=== PATIENT | male | born 1955 | race Caucasian/White ===

== ENCOUNTER 2021-04-24 07:42 | Observation (INO) ==
--- NOTE | 2021-04-03 16:30 | PAT Medication Instructions ---
Medication Instructions Date of Service April 03, 2021 Home Medications meloxicam 15 mg tablet 15 mg PO QAM omeprazole 40 mg capsule,delayed release 40 mg PO QAM Vitamin C 1 tab PO QPM Vitamin D3 1 tab PO QPM Zinc 1 tab PO QPM ASK your surgeon for instructions meloxicam 15 mg tablet 15 mg PO QAM Take morning of surgery With a small sip of water, OTHERWISE NOTHING TO EAT OR DRINK AFTER MIDNIGHT: omeprazole 40 mg capsule,delayed release 40 mg PO QAM Take evening before surgery Vitamin C 1 tab PO QPM Vitamin D3 1 tab PO QPM Zinc 1 tab PO QPM Other Notes If you have any questions please call us at [phone] or [phone] or [phone] or [phone]
--- NOTE | 2021-04-07 08:17 | Anesthesiology Consultation ---
Date of Service April 07, 2021 Assessment & Plan (1) Encounter for pre-operative examination: - Outpatient joint pathway: Per surgeon and patient, plan for outpatient joint program. Case discussed with Dr. Malik Lr who advised patient is NOT an acceptable candidate for Same Day Joint Program from anesthesia perspective especially given suspected undiagnosed sleep apnea. Quan at surgeon's office made aware. - COVID screening: Per assessment on 04/07/2021: Travel screen negative, no known COVID-19 positive contacts or current COVID-19 related symptoms in past 2 weeks. Surgeon arranging preop COVID testing, scheduled 04/24/2021 HUNTER Reyna. Awaiting results. Chart Review Chart Review: Acceptable Risk for Surgery and Patient seen in Pre Admission Testing Teaching & Discussion Pre-Anesthesia Teaching/Discussion Notes: Instructed NPO after midnight before surgery, except medications with 15 cc of water. Medication instructions provided according to the PAT guidelines. History Surgery Operation Date: 04/26/21 08:00 Proposed Procedures p OP: Left Total Knee Arthroplasty - Goldy Gibbons DO Height/Weight Height: 5 ft 6 in Weight: 108.9 kg Allergies Allergy/AdvReac Type Severity Reaction Status Date / Time No Known Allergies Allergy Verified 04/03/21 09:16 Medications Home Medications Medication Instructions Recorded Confirmed Last Taken meloxicam 15 mg tablet 15 mg PO QAM 11/14/17 04/03/21 Unknown omeprazole 40 mg capsule,delayed 40 mg PO QAM 11/14/17 04/03/21 Unknown release Vitamin C 1 tab PO QPM 04/03/21 04/03/21 Unknown Vitamin D3 1 tab PO QPM 04/03/21 04/03/21 Unknown Zinc 1 tab PO QPM 04/03/21 04/03/21 Unknown Past Medical History Medical History Arthritis GERD (gastroesophageal reflux disease) Patient denies h/o stroke, seizures, heart attack, heart failure, DM, HTN, blood clots or blood transfusions. Exercise / Class Metabolic Activity II 4-5 Yardwork/Stairs/Walk up hill (denies CP or SOB with 1 FOS) Past Family History Family History Other No pertinent family history Past Surgical History Surgical History History of colonoscopy History of esophagogastroduodenoscopy (EGD) History of herniorrhaphy UMBILICAL Hx of knee surgery LEFT arthroscopy, meniscectomy Past Anesthesia History No Hx of Anesthesia Complications and No Family Hx of Anesthesia Complications History of PONV History of PONV (reports headache and nausea after knee arthroscopy 2019) and Hx of Motion Sickness Social History Smoking Status: Light tobacco smoker tobacco type: smokeless tobacco Smoking cigarettes per day: 10 CIGS ON SATURDAY ONLY Do You Dip or Chew Tobacco: Yes (1 CAN PER DAY-advised NPO) Hx Alcohol Use: Yes Alcohol type: beer alcohol intake frequency: other Alcohol Intake Frequency Comment: BEER-Saturdays ONLY Hx Substance Use: Yes substance use type: marijuana Substance Use Type Other:: MARIJUANA INH 1 DAY WK SATURDAYS ONLY-advised Review of Systems Snoring and witnessed apneas, wakes suddenly on occasion. Waiting on in-lab study, HST did not have adequate data per [facility] records. Patient denies chest pain, shortness of breath, dyspnea on exertion, fever, chills, cough, wheezing, or palpitations. Physical Exam Vital Signs Vitals BP 130/85 P 76 TEMP 98.4 SP02 95% on RA RESP 17 Physical Short, thick neck Full cervical extension range of motion without pain Full TMJ range of motion TMD 3 finger breaths Mallampati Score 4, small oral opening Dentition: intact, partial front upper, chipped teeth-left lower side; denies loose teeth Lungs: normal respiratory effort. Clear throughout to auscultation, no adventitious breath sounds Cardiac: regular rate and rhythm, no murmurs noted Carotid arteries: negative bruit bilat Extremities: no distal extremity edema Lab Results Anesthesia Preop Results Results Anesthesia Widget: WBC 7.13 K/uL (4.8-10.8) 04/07/21 Hgb 15.4 g/dL (14.0-18.0) 04/07/21 Hct 45.4 % (42-52) 04/07/21 Plt 269 K/uL (130-400) 04/07/21 Na 136 mmol/L (136-145) 04/07/21 K 4.2 mmol/L (3.5-5.1) 04/07/21 Cl 103 mmol/L (98-107) 04/07/21 CO2 26 mmol/L (21-32) 04/07/21 BUN 21 mg/dl (6-23) 04/07/21 Creat 0.71 mg/dl (0.6-1.4) 04/07/21 Glucose Level 106 mg/dl (70-99(Fasting)) H 04/07/21 PT 9.8 Seconds (9.0-12.0) 04/07/21 PTT 27.0 Seconds (21.0-31.0) 04/07/21 INR 1.0 (0.9-1.1) 04/07/21 HA1c 6.0 % (4.5-5.6) H 04/07/21 Urine Color Yellow 04/07/21 Urine Appearance Clear (Clear) 04/07/21 Urine pH 5.0 (4.5-7.5) 04/07/21 Urine Specific [place] 1.017 (1.000-1.030) 04/07/21 Urine Protein Negative (Negative) 04/07/21 Urine Glucose (UA) Negative (Negative) 04/07/21 Urine Ketones Negative (Negative) 04/07/21 Urine Blood Negative (Negative) 04/07/21 Urine Nitrite Negative (Negative) 04/07/21 Urine Bilirubin Negative (Negative) 04/07/21 Urine Urobilinogen Negative (Negative) 04/07/21 Urine Leukocyte Esterase Negative (Negative) 04/07/21 Blood Type O Positive 04/07/21 Antibody Screen NEGATIVE 04/07/21 Testing Electrocardiogram Date: 04/07/21 NSR, rate 76 bpm Chest X-Ray Date: 04/07/21 Stable mild cardiomegaly
--- NOTE | 2021-04-07 17:30 | History & Physical Report ---
Date of Service April 07, 2021 date of surgery: 04/26/21 Procedure: Left Total Knee Arthroplasty Surgeon: Goldy Gibbons Assessment & Plan (1) Arthritis of knee, left: Plan: Risks and benefits of procedure discussed in detail today, patient would like to proceed with a left total knee replacement at [facility] as scheduled, outpatient joint program if cleared by anesthesia. will obtain medical clearance from Dr Ferrara prior to surgery as well as obtain PATs at [facility]. Will place on ASA 81mg po bid x 1 month post op, f/u 2 weeks post op for routine post-operative care and x-ray, sooner if having any problems. will make arrangements for HHPT at the time of discharge. At this point in time, has failed conservative measures and would like to proceed with surgical intervention. The risks and benefits have been discussed including, but not limited to, risk of infection, nerve injury, stiffness, loss of motion, failure to improve, etc. Reasonable outcomes and options of treatment were discussed. An explanation of appropriate alternatives to the procedure that may be advantageous were discussed and their risks and benefits, as well as the risks and benefits of not proceeding with treatment. I offered to answer any additional inquiries concerning the treatment involved. All the patient's questions were answered. The patient is agreeable, understanding of the treatment plan and alternatives, and wishes to proceed with the treatment plan. History of Present Illness Chief Complaint: left knee pain Primary Care Provider: Jesus Jones MD Charles is a 65 year old male who complains of left knee pain, presents for pre-op evaluation prior to a left total knee replacement by Dr Gibbons at [facility]. He complains of pain, decreased range of motion, instability and stiffness in his left knee. Currently the patient states that the symptoms are moderate-severe and rated as 8/10. The pain is described as aching, sharp and throbbing. His symptoms are aggravated by ascending stairs, daily activities, first steps while awake walking. Prior NSAIDs include Meloxicam and IBU. He has been treated with previous visco injections, cortisone injection, as well as clinical trials in the past without much relief. he does also use a brace at time. He also had prior left knee scope by Dr Ruffin. Allergies Allergy/AdvReac Type Severity Reaction Status Date / Time No Known Allergies Allergy Verified 04/03/21 09:16 Home Medications Medication Instructions Recorded Confirmed Type meloxicam 15 mg tablet 15 mg PO QAM 11/14/17 04/03/21 History omeprazole 40 mg capsule,delayed 40 mg PO QAM 11/14/17 04/03/21 History release Vitamin C 1 tab PO QPM 04/03/21 04/03/21 History Vitamin D3 1 tab PO QPM 04/03/21 04/03/21 History Zinc 1 tab PO QPM 04/03/21 04/03/21 History Past Med/Surg History Medical History Arthritis GERD (gastroesophageal reflux disease) Surgical History History of colonoscopy History of esophagogastroduodenoscopy (EGD) History of herniorrhaphy UMBILICAL Hx of knee surgery LEFT arthroscopy, meniscectomy Family History Other No pertinent family history Social History Smoking Status: Light tobacco smoker Cigarettes Per Day: 10 CIGS ON SATURDAY ONLY; Second Hand Exposure: No; Hx Alcohol Use: Yes Alcohol type: beer Hx Substance Use: Yes Substance Use Type Other:: MARIJUANA INH 1 DAY WK SATURDAYS ONLY-advised Preferred Language: [place] Communication Ability: Effective Telecommunicator Supervisor Required: No Beliefs That Will Affect Care: None Current Living Situation: Alone current occupational status: employed current occupation: [employer] Feels Safe at Home: Yes Assistive Devices: Brace/Splint/Immobilizer, Cane and Denture - Upper Review of Systems Review of Systems: All systems reviewed & are unremarkable except as noted in HPI & below Constitutional: no fever, no chills and no sweats Respiratory: no cough and no dyspnea Cardiovascular: no chest pain, no dyspnea and no orthopnea Gastrointestinal: no abdominal pain, no nausea and no vomiting Musculoskeletal: as per Subjective / HPI Physical Exam Physical Exam: HT: 5ft 6in WT: 108.9kg BP: 132/84 Pulse: 82 Constitutional: WD/WN, vitals as above no acute distress Respiratory: normal respiratory effort, lungs clear to auscultation no respiratory distress, no labored breathing and does not use accessory muscles Cardiovascular: RRR, no murmur, no edema Gastrointestinal (Abdomen): normal bowel sounds, soft, nontender, no hepatosplenomegaly Musculoskeletal: Knee: + knee abnormal to inspection (LEFT KNEE), + effusion (+1 effusion), + surgical incision (well healed portals), + limited ROM of knee (ROM 0/3/110), + knee ROM with crepitation, + joint line tenderness (medial joint line) and + Brando's sign positive; no deformity, no skin erythema, no ecchymosis, no valgus laxity, no varus laxity, anterior drawer test negative, Carolyn's sign negative and pivot shift test negative Results & Data Results & Data ([facility]) Diagnostic Findings Left Knee X-ray: left knee series confirm advanced degenerative changes to the left knee, greate st medial compartments and patellofemoral joint, showing joint space narrowing, osteophyte formation and subchondral sclerosis. no acute bony pathology noted.
[~2021-04-24 07:42] MED LIST: ACETAMINOPHEN 500 MG TAB PO SCH; BUPIVACAINE 0.5 % 5 MG/1 ML PF 10ML VIAL ONE; CeleBREX 200 MG CAP PO SCH; FAMOTIDINE 20 MG TAB PO SCH; GABAPENTIN 600 MG DOSE PO SCH; LR 500ML BOLUS, THEN 15ML/HR IV SCH; METOCLOPRAMIDE HCL 10 MG TABLET PO SCH; ROPIVACAINE 0.5% HCL/PF 150 MG, BUPIVACAINE 0.75% MPF 20 ML, EPINEPHrine 30MG/30ML (OR ... INFIL SCH; TRANEXAMIC ACID 1,000 MG **IV Intra-op IV SCH; TRANEXAMIC ACID 1,000 MG **IV Pre-op IV SCH; ceFAZolin 2000MG 2,000 MG/15 ML SYR IV SCH; dexAMETHasone 4 MG TAB PO SCH; oxyCODONE HCL 10 MG TABCR (OxyCONTIN) PO SCH
--- NOTE | 2021-04-24 08:35 | History & Physical Bridge Note ---
Date of Service April 24, 2021 History & Physical Bridge Note I have examined the patient, reviewed the History & Physical and in the interval since the performance of the History & Physical I have noted the following changes of clinical significance: no changes noted
[2021-04-24] MEDS ORDERED: MIDAZOLAM HCL 1 MG/ML 2ML VIAL ONE (09:40)
[2021-04-24] MEDS ORDERED: fentaNYL citrate 100 MCG/2 ML VIAL ONE (09:40)
[2021-04-24] MEDS ORDERED: fentaNYL citrate 100 MCG/2 ML VIAL IV PRN (09:41)
[2021-04-24] MEDS ORDERED: ONDANSETRON INJ 2 MG/ML 2 ML VIAL IV PRN ×2 (09:41→14:53)
[2021-04-24] MEDS ORDERED: ePHEDrine sulfate 50 MG/ML AMP IV PRN (09:41)
[2021-04-24] MEDS ORDERED: ATROPINE SULFATE 0.1 MG/ML 10ML SYR IV PRN (09:41)
[2021-04-24] MEDS ORDERED: ceFAZolin 330 MG/ML 1 GM VIAL ONE (10:53)
[2021-04-24] MEDS ORDERED: ORTHO JOINT ANESTHETIC ONE (10:53)
[2021-04-24] MEDS ORDERED: PROPOFOL IV EMULSION 10 MG/ML 20 ML VIAL IV ONE (10:54)
[2021-04-24] MEDS ORDERED: PHENYLEPHRINE 100MCG/ML 5ML SYR ONE (12:21)
[2021-04-24] MEDS ORDERED: ePHEDrine sulfate 50 MG/ML AMP ONE (12:21)
[2021-04-24] MEDS ORDERED: ONDANSETRON INJ 2 MG/ML 2 ML VIAL ONE (12:21)
--- NOTE | 2021-04-24 12:25 | Operative Report ---
Post Operative Report Pre & Post Diagnosis Operation Date: 04/24/21 10:15 Pre-Op Diagnosis: Left Knee Osteoarthritis Post-Op Diagnosis: Left Knee Osteoarthritis I identified the patient and participated in the time-out.: Yes Procedure Operation Date: 04/24/21 10:15 Actual Procedures p Left Total Knee Arthroplasty(Left) utilizing [employer] persona patient matched size femur 11 narrow tibia F medial constrained poly-10 mm patella 31 oval J DO Shai Surgeon Goldy Gibbons DO Chronometer Assembler Osito MOHAMUD Estimated Blood Loss 5 Findings Consistent with Post-Op Diagnosis Patient presents with severe end-stage DJD varus alignment of 9 degrees varus with a 12 degree flexion contracture eburnated [id number] medial and lateral osteophytes moderate to large effusion subchondral cystic changes Specimens Bone and cartilage Drains Medium bore Hemovac Anesthesia Type MAC Spinal Regional Complications none Disposition Accompanied Patient To Recovery: No Disposition: Recovery Room Indications Patient presents with severe end-stage DJD varus alignment failed attempted corticosteroid injection Visco supplementation relative rest activity modification clinical trials and presents with the above intraoperative findings noted Description of Procedure After proper prepping and draping of the left lower extremity anterior midline incision was made over the region of the extensor extensor mechanism after meticulous hemostasis was obtained and maintained in subcutaneous tissues a medial parapatellar incision was made The patella was subluxed lateralward the medial lateral gutter were cleaned from any hypertrophic synovitis and scar tissue of the distal femoral block was placed and the distal femoral osteotomy cut was made subsequently the chamfers anterior and posterior osteotomy cuts were made utilizing the 4-in-1 block the tibia was subsequently subluxed anteriorward medial and ateral meniscal remnants were excised in their entirety remnants of the anterior and posterior cruciate ligaments were excised in their entirety excellent exposure of the proximal tibia was obtained the tibial osteotomy guide was placed on the proximal tibial osteotomy cut was made once again the knee was irrigated with copious amounts of sterile saline solution the patella was subsequently everted lateralward thickened scar tissue around the patella was removed the patella was subsequently cut utilizing a freehand technique and was drilled prepared for final preparation and placement of p atella socially flexion-extension gaps were checked and the equal and symmetric trials were placed to the appropriate femoral and tibial trials with poly-spacer being placed for equal flexion and extension gaps and full range of motion including extension to 0 and flexion to 140 the trial components after having been taken to recovery range of motion was subsequently removed meticulous hemostasis was obtained and maintained subsequently a knee block injection of joint cocktail including ropivacaine 0.5% 150 mg. Bupivacaine 0.5% epinephrine 1-200,030 mL's toradol 30 mg dexamethasone 4 mg ketamine 10 mg clonidine 100 micrograms normal saline solution 30 mg was infiltrated into the soft tissues of the posterior knee medial lateral gutters and periosteal synovium special attention was paid to protect neurovascular structures at all times subsequently trial components having been removed the knee was irrigated with sterile saline solution. debris was removed the proximal tibia was subsequently prepared and was made ready for the placement of the tibial component tibial component was also cemented and tamped into position the femoral component was subsequently placed and cemented in the position the patellar component was subsequently cemented in position because hemostasis once again obtained and maintained wound having been thoroughly irrigated with debridement and debridement lavage was performed as well as a medial parapatellar incision closed with #1 Vicryl in interrupted fashion subcutaneous was closed with #2 Vicryl skin was closed with skin clips. PA-C was necessary for prepping and drapping as well as wound closure of deep fascia Sub cutaneous tissue and skin and was necessary for the case. A sterile compressive dressing was placed patient was taken to recovery in stable condition of report dictated by Shai I attest to the content of the Intraoperative Record and any orders documented therein. Any exceptions are noted below.Due to the complex nature of the procedure, the entire surgery was performed with the operational assistance of CADE Wilkes The family service assistant, under direct supervision, was involved in the actual performance of all aspects of the surgical procedure including hemostasis, tissue retraction and incision, instrument management, patient positioning, and wound closure. I attest to the content of the Intraoperative Record and any orders documented therein. Any exceptions are noted below.
--- NOTE | 2021-04-24 13:25 | Anesthesiology Progress Note ---
Date of Service April 24, 2021 Anesthesia Post Procedure Vital Signs Vital Signs: Temp Pulse Pulse Resp BP BP Pulse Ox 04/24/21 13:10 82 16 128/78 93 04/24/21 13:00 84 18 126/86 95 04/24/21 12:54 97.5 F L 97 H 18 131/74 95 04/24/21 08:12 82 20 143/95 H 96 Transfer of Care Handoff Completed per policy Notes Mental Status: alert / awake / arousable and participated in evaluation Patient Amnestic to Procedure: Yes Nausea / Vomiting: adequately controlled Pain: adequately controlled Airway Patency, RR, SpO2: stable & adequate BP & HR: stable & adequate Hydration State: stable & adequate Neuraxial Anesthesia: was administered and sensory block is resolving Anesthetic Complications: no major complications apparent and Pt Satisfied with anesthetic care
--- NOTE | 2021-04-24 13:28 | XRay Report ---
LEFT KNEE 2 VIEWS History: Left total knee arthroplasty. Degenerative arthritis. Postop. FINDINGS: The patient is status post a left total knee arthroplasty. The hardware is intact. No fract ure or dislocation. Surgical drains are in place. IMPRESSION: Left total knee arthroplasty. No evidence for hardware complication. ACT 112: Negative or not required by law. Electronically signed by: Malik Sprague M.D. 04/24/2021 1:27 PM
[2021-04-24] MEDS: SODIUM CHLORIDE 0.9% 1000ML 1,000 ML IV SCH (14:45)
[2021-04-24] MEDS ORDERED: METOCLOPRAMIDE HCL INJ 5 MG/ML 2 ML VIAL IV PRN (14:53)
[2021-04-24] MEDS ORDERED: diphenhydrAMINE Capsule 25 MG CAP PO PRN (14:53)
[2021-04-24] MEDS ORDERED: NALOXONE HCL 0.4 MG/1 ML VIAL/CARP IV PRN (14:53)
[2021-04-24] MEDS ORDERED: bisacodyL 10 MG SUPP PR PRN (14:53)
[2021-04-24] MEDS ORDERED: HYDROmorphone INJ 1 MG/ML SYRINGE IV PRN (14:53)
[2021-04-24] MEDS ORDERED: MAGNESIUM HYDROXIDE SUSP 30 ML UDC PO PRN (14:53)
[2021-04-24] MEDS: KETOROLAC 30 MG/ML VIAL IV SCH ×2 (16:10→19:53)
[2021-04-24] MEDS: ceFAZolin 2000MG 2,000 MG/15 ML SYR IV SCH (18:57)
[2021-04-24] MEDS: ASPIRIN 81 MG ECTAB PO SCH (19:57)
[2021-04-24] MEDS: ZINC SULFATE 220 MG CAPSULE PO SCH (19:58)
[2021-04-24] MEDS: SENNA 8.6 MG TAB PO SCH (19:58)
[2021-04-24] MEDS: DOCUSATE SODIUM 100 MG CAP PO SCH (19:58)
[2021-04-24] MEDS: ACETAMINOPHEN 500 MG TAB PO SCH (21:19)
[2021-04-24] MEDS: oxyCODONE HCL IR 5 MG TAB (IMMEDIATE RELEASE) PO PRN (21:19)
[2021-04-24] MEDS: ASCORBIC ACID 500 MG TAB PO SCH (21:19)
[2021-04-24] MEDS: CHOLECALCIFEROL 1,000 UNITS 25 MCG TAB PO SCH (21:51)
[2021-04-25] MEDS: SODIUM CHLORIDE 0.9% 1000ML 1,000 ML IV SCH (01:32)
[2021-04-25] MEDS: ceFAZolin 2000MG 2,000 MG/15 ML SYR IV SCH (02:14)
[2021-04-25] MEDS: KETOROLAC 30 MG/ML VIAL IV SCH ×2 (02:14→08:25)
[2021-04-25] MEDS: ACETAMINOPHEN 500 MG TAB PO SCH ×3 (05:57→21:53)
[2021-04-25 07:47] LABS: Hematocrit (blood only) 36.8 % (42-52); Hemoglobin 12.4 g/dL (14.0-18.0); Mean Corpuscular Hgb Conc 33.7 g/dL (32-36); Mean Corpuscular Volume 86.2 fL (80-100); Mean Platelet Volume 8.9 fL (7.4-10.4); Platelet Count 239 K/uL (130-400); RDW Coefficient of Variation 12.8 % (11.5-14.5); RDW Standard Deviation 40.7 fL (36.4-46.3); Red Blood Count 4.27 M/uL (4.7-6.1); White Blood Count 11.67 K/uL (4.8-10.8)
[2021-04-25 08:11] LABS: BUN Creatinine Ratio 26.8 (10-20); Calcium 7.6 mg/dl (8.5-10.1); Creatinine Clr Calc Pharmacy 106.2 ml/min; Est GFR (African American) 108.3 ml/min; Est GFR (Non-African American) 93.5 ml/min; Potassium 4.1 mmol/L (3.5-5.1)
[2021-04-25] MEDS: ASPIRIN 81 MG ECTAB PO SCH ×2 (08:25→20:02)
[2021-04-25] MEDS: MULTIVITAMIN TAB PO SCH (08:26)
[2021-04-25] MEDS: DOCUSATE SODIUM 100 MG CAP PO SCH ×2 (08:26→20:03)
[2021-04-25] MEDS: oxyCODONE HCL IR 5 MG TAB (IMMEDIATE RELEASE) PO PRN ×4 (08:26→21:53)
--- NOTE | 2021-04-25 09:36 | Orthopedic Progress Note ---
Date of Service April 25, 2021 Assessment & Plan (1) Arthritis of knee, left: Plan: POD 1 s/p Left TKA PT/OT protocols. WBAT. DVT prophylaxis - ASA bid, SCD's, SAMANTA's Pain management as written. DC planning - Planning for HH services after DC. Admission and Anticipated Discharge Date Admission Date: April 24, 2021 Subjective POD 1 Pt sitting in bed. Awake, alert. No complaints this AM other than he did not sleep well. Pain controlled. Pt states he is hoping to go home today. Physical Exam Physical Exam: Dressings C/D/I. Calves soft, NT. NV intact. Good DF/PF of the operative ankle/foot. HV drainage 250ml from previous shift. Results & Data ([facility]) Vital Signs (Past 12 Hours) Vital Signs Temp Pulse Resp BP Pulse Ox 04/25/21 07:54 36.5 C 69 20 123/84 97 04/25/21 03:45 36.8 C 73 18 153/89 H 98 04/24/21 23:39 36.7 C 90 18 153/88 H 98 Laboratory Results Laboratory Results WBC 11.67 K/uL (4.8-10.8) H 04/25/21 07:24 RBC 4.27 M/uL (4.7-6.1) L 04/25/21 07:24 Hgb 12.4 g/dL (14.0-18.0) L 04/25/21 07:24 Hct 36.8 % (42-52) L 04/25/21 07:24 MCV 86.2 fL (80-100) 04/25/21 07:24 MCH 29.0 pg (25-34) 04/25/21 07:24 MCHC 33.7 g/dL (32-36) 04/25/21 07:24 RDW Std Deviation 40.7 fL (36.4-46.3) 04/25/21 07:24 RDW Coeff of Vini 12.8 % (11.5-14.5) 04/25/21 07:24 Plt Count 239 K/uL (130-400) 04/25/21 07:24 MPV 8.9 fL (7.4-10.4) 04/25/21 07:24 Sodium 135 mmol/L (136-145) L 04/25/21 07:24 Potassium 4.1 mmol/L (3.5-5.1) 04/25/21 07:24 Chloride 104 mmol/L (98-107) 04/25/21 07:24 Carbon Dioxide 26 mmol/L (21-32) 04/25/21 07:24 Anion Gap 5 (3-11) 04/25/21 07:24 BUN 22 mg/dl (6-23) 04/25/21 07:24 Creatinine 0.82 mg/dl (0.6-1.4) 04/25/21 07:24 Est Cr Clr Drug Dosing 106.2 ml/min 04/25/21 07:24 Est GFR ( Amer) 108.3 ml/min 04/25/21 07:24 Est GFR (Non-Af Amer) 93.5 ml/min 04/25/21 07:24 BUN/Creatinine Ratio 26.8 (10-20) H 04/25/21 07:24 Glucose 114 mg/dl (70-99(Fasting)) H 04/25/21 07:24 Calcium 7.6 mg/dl (8.5-10.1) L 04/25/21 07:24 SARS-CoV-2, RNA, NAAT NEGATIVE (NEGATIVE) 04/24/21 08:10 Impressions Knee X-Ray 04/24/21 13:01 LEFT KNEE 2 VIEWS History: Left total knee arthroplasty. Degenerative arthritis. Postop. FINDINGS: The patient is status post a left total knee arthroplasty. The hardware is intact. No fracture or dislocation. Surgical drains are in place. IMPRESSION: Left total knee arthroplasty. No evidence for hardware complication. ACT 112: Negative or not required by law. Electronically signed by: Malik Sprague M.D. 04/24/2021 1:27 PM
[2021-04-25] MEDS: CHOLECALCIFEROL 1,000 UNITS 25 MCG TAB PO SCH (20:01)
[2021-04-25] MEDS: ZINC SULFATE 220 MG CAPSULE PO SCH (20:01)
[2021-04-25] MEDS: ASCORBIC ACID 500 MG TAB PO SCH (20:02)
[2021-04-25] MEDS: CeleBREX 200 MG CAP PO SCH (20:02)
[2021-04-25] MEDS: SENNA 8.6 MG TAB PO SCH (20:03)
[2021-04-26] MEDS: ACETAMINOPHEN 500 MG TAB PO SCH (05:52)
[2021-04-26] MEDS: oxyCODONE HCL IR 5 MG TAB (IMMEDIATE RELEASE) PO PRN (07:48)
[2021-04-26] MEDS: DOCUSATE SODIUM 100 MG CAP PO SCH (08:25)
[2021-04-26] MEDS: MULTIVITAMIN TAB PO SCH (08:25)
[2021-04-26] MEDS: ASPIRIN 81 MG ECTAB PO SCH (08:25)
[2021-04-26] MEDS: CeleBREX 200 MG CAP PO SCH (08:26)
[2021-04-26] MEDS ORDERED: PANTOprazole 40 MG TAB PO ONE (09:22)
--- NOTE | 2021-04-26 09:31 | Orthopedic Progress Note ---
Date of Service April 26, 2021 Assessment & Plan (1) Arthritis of knee, left: Plan: POD 2 s/p Left TKA PT/OT protocols. WBAT. DVT prophylaxis - ASA bid, SCD's, SAMANTA's Pain management as written. Progressing well with PT. DC planning - Planning for HH services after DC. Discharge to home today. Admission and Anticipated Discharge Date Admission Date: April 24, 2021 Subjective POD 2 Pt going through PT currently. Asking for a Prilosec this AM. States with all his medications, it seems to be stirring up his reflux. No other complaints. Physical Exam Physical Exam: RACHEL dressing is C/D/I. Functioning. Calves are soft, NT. NV intact. Results & Data ([facility]) Vital Signs (Past 12 Hours) Vital Signs Temp Pulse Resp BP BP Pulse Ox 04/26/21 08:11 36.9 C 71 20 138/83 95 04/25/21 21:40 36.5 C 80 18 152/75 H 96
--- NOTE | 2021-04-26 13:11 | Discharge Summary ---
Date of Service date of discharge: April 26, 2021 date of admission: 04-24-21 Admission HPI Per Admitting Provider Charles is a 65 year old male who complains of left knee pain, presents for pre- op evaluation prior to a left total knee replacement by Dr Gibbons at [facility]. He complains of pain, decreased range of motion, instability and stiffness in his left knee. Currently the patient states that the symptoms are moderate-severe and rated as 8/10. The pain is described as aching, sharp and throbbing. His symptoms are aggravated by ascending stairs, daily activities, first steps while awake walking. Prior NSAIDs include Meloxicam and IBU. He has been treated with previous visco injections, cortisone injection, as well as clinical trials in the past without much relief. he does also use a brace at time. He also had prior left knee scope by Dr Ruffin. Principal Diagnosis left knee arthritis Discharge Exam Musculoskeletal Left knee: NVDI, calf SNT, negative diego sign. DP palpable, able to wiggle toes/ankle movement without difficulty. RACHEL dressing clean dry and intact. expected post-operative bruising noted. Discharge Data Allergies Allergy/AdvReac Type Severity Reaction Status Date / Time No Known Allergies Allergy Verified 04/24/21 08:19 Procedures Performed Operation Date: 04/24/21 10:15 Actual Procedures p Left Total Knee Arthroplasty(Left) - Goldy Gibbons DO Ordered Studies 04/24/21 05:00 US - OR guided needle placemen Routine Hospital Course (1) Arthritis of knee, left: POD 2 s/p Left TKA PT/OT protocols. WBAT. DVT prophylaxis - ASA bid, SCD's, SAMANTA's Pain management as written. Progressing well with PT. DC planning - Planning for HH services after DC. Discharge to home today. Total Time Total Time Spent Total Time Spent (In Minutes): 20 Discharge Plan Discharge Items Patient Disposition: Home - Home Health Services Reason For Visit: Left Knee Osteoarthritis Discharge Diagnosis: LEFT TOTAL KNEE REPLACEMENT Activity: Per Instructions section Lifting: Wait until after follow-up appointment Weightbearing: Left weightbearing Weightbearing Comment: as tolerated with walker Non-emergency contact: Surgeon Call non-emergency contact if: you have any medication questions, your temperature is above 101, your wound has increased redness, your wound has increased drainage and your wound pain has increased Follow-up/Referrals: Goldy Gibbons DO [Surgeon] - 05/08/21 12:40 pm (Follow up in 2 weeks for your first post operative check up. ) Jesus Jones MD [Primary Care Provider] - Diet: Regular Addtl Attending Provider Instructions: ACTIVITY RECOMMENDATIONS: SELF CARE INSTRUCTIONS AFTER TOTAL KNEE REPLACEMENT A. You may need to continue a physical therapy program after discharge from the hospital. There are several options available to you. Your doctor will assist you in selecting the best one for you. 1. An out-patient facility 2 to 3 times a week for therapy or home therapy. 2. Continue working on all exercises taught to you in the hospital. Your goals should be to increase bending of your knee to 90 degrees and beyond and to fully straighten your knee. B. You may progress at your own pace from walking with a walker or crutches to a cane; then to no assistive devices. C. Make walking a part of your daily routine. Be up as much as comfortable with rest periods throughout the day. Rest with leg elevation is very important. Use the ice wrap frequently for the first 3-4 weeks. D. There are no restrictions on activities. You may ride in a car, shop, participate in car clerk pullman and all social activities. E. Wear the long elastic stockings (SAMANTA hose) 20 hours a day for 2 weeks after surgery. They can be removed several times a day for laundering and for a bath. F. You may shower, no tub baths until cleared by your doctor. SPECIAL CARE INSTRUCTIONS: VERY IMPORTANT TO READ AND REVIEW A. There are a few signs you need to watch for after you are home. Call [facility] if you notice any of the followin. Increased severe knee pain. Some pain is expected especially when you exercise. 2. Increased swelling in your leg or knee; pain or swelling of the calf muscle in either lower leg. 3. Any fluid drainage from the incision. 4. Shortness of breath or chest pain. B. Please call [facility] at if you have any concerns or questions about your operation or recovery. The doctor or his nurse will return your call promptly. C. You must take antibiotics before dental work, bladder, bowel or other surgery. Your doctor will provide you with a permanent care to carry describing this precaution. IMPORTANT: * REMEMBER TO TAKE ASPIRIN, 81 MG, TWICE DAILY FOR 4 WEEKS UNLESS OTHERWISE DIRECTED. THIS IS YOUR BLOOD THINNER. * HIGH RISK PATIENTS MAY BE PRESCRIBED A STRONGER BLOOD THINNER. THIS WILL BE PROVIDED AT DISCHARGE. * CALL IF INCREASED PAIN, REDNESS, DRAINAGE OR FEVER GREATER THAT 101. * WEAR SAMANTA HOSE 20 HOURS PER DAY FOR 2 WEEKS. * RACHEL Dressing- This is a large suction dressing covering your incision. This will help pull any excess drainage from the wound and allow your incision to heal properly. You may shower with this if you can keep the unit outside of the shower. If any bleeding or leakage is noted please call your doctor's office. This will remain on your incision for 7 days and then should be removed. This can be done yourself or by the home nursing staff if applicable. The entire unit is disposable once removed. Once removed, keep incision clean and dry. If redness or drainage is noted, please call your surgeon. ONCE RACHEL IS REMOVED: DERMABOND Prineo- This is a mesh tape dressing that is covered with glue. It should remain in place until the incision is properly healed, usually 10-14 days. This dressing is designed to naturally slough off. You may trim the excess mesh tape as it peels off. Incision may be briefly wet in a shower. Dry immediately by blotting with a clean, dry towel. Do not bath or swim until instructed by your doctor. Do not scratch, rub, or pick at the dressing. Do not apply any topical ointments or lotions until dressing is completely removed and/or instructed by your doctor. There may be a small piece of suture material at one end of your incision. Do not pull or trim this. If it is bothersome or catching on clothing, you may cover it with a band-aid. IF INCISION IS LEAKING THROUGH DRESSING, CALL THE OFFICE . FOLLOW UP VISIT: If appointment is not already scheduled: Please call [facility] to make a follow-up appointment for 2 weeks after your surgery at . Stand-Alone Forms: My [employer], Opioid Pain Management, Smoking Cessation Medications and DC Order Prescriptions: New celecoxib [Celebrex] 200 mg Capsule 200 mg PO BID 14 Days Qty: 28 RF: 0 aspirin 81 mg Tablet,Delayed Release (Dr/Ec) 81 mg PO BID 30 Days Qty: 60 RF: 0 acetaminophen [Tylenol Extra Strength] 500 mg Tablet 1,000 mg PO Q8 14 Days Qty: 84 RF: 0 polyethylene glycol 3350 [Miralax] 17 gram powder in packet 17 g PO DAILY PRN (Reason: constipation) Qty: 5 RF: 0 oxycodone 5 mg Tablet 5 mg PO Q4H MDD 6 PRN (Reason: pain) Qty: 30 RF: 0 cefadroxil 500 mg capsule 500 mg PO BID Qty: 14 RF: 0 Continued omeprazole 40 mg capsule,delayed release(DR/EC) 40 mg PO QAM RF: 0 Vitamin C 1 tab PO QPM RF: 0 Vitamin D3 1 tab PO QPM RF: 0 Zinc 1 tab PO QPM RF: 0 Discontinued meloxicam 15 mg tablet 15 mg PO QAM RF: 0 Discharge Orders: Discharge Order (Routine); Ordered 04/26/21 Ordered By: Ranjan Braden Admission Data Admit Date/Time: 04/24/21 13:01 Attending Provider: Goldy Gibbons Admit Provider: Goldy Gibbons Primary Care Provider: Jesus Jones Other Providers: [facility],Home Healthcare Other Interventions: Discharge Summary Assessment (RN) Last Done: 04/26/21 09:54
== END 2021-04-26 11:05 | disposition home health service (06) ==
LOC: 3E 07:42 → ASU 07:42